=== PATIENT | female | born 1980 | race Caucasian/White ===

== ENCOUNTER 2024-10-23 09:12 | Outpatient (RCR) | payer BC, SELFPAY | END 2024-10-23 23:59 | disposition home or self-care (01) | LOC: RPT 09:12 | PROVIDERS: ATTENDING PHYSICIAN Obstetrics & Gynecology Gynecology; FAMILY PHYSICIAN Physician Assistant Medical | DX: M62.9 Disorder of muscle, unspecified (principal); N39.46 Mixed incontinence; R15.1 Fecal smearing; Z73.6 Limitation of activities due to disability; M62.81 Muscle weakness (generalized); K59.4 Anal spasm; R10.2 Pelvic and perineal pain | CPT/HCPCS: 97163; 97530 ==

== ENCOUNTER 2024-12-06 17:21 | Outpatient (RCR) | payer BC, SELFPAY | END 2024-12-06 23:59 | disposition home or self-care (01) | LOC: RPT 17:21 | PROVIDERS: ATTENDING PHYSICIAN Obstetrics & Gynecology Gynecology; FAMILY PHYSICIAN Physician Assistant Medical | DX: M62.9 Disorder of muscle, unspecified (principal); N39.46 Mixed incontinence; R15.1 Fecal smearing; Z73.6 Limitation of activities due to disability; M62.81 Muscle weakness (generalized); K59.4 Anal spasm; R10.2 Pelvic and perineal pain | CPT/HCPCS: 97112; 97530 ==

== ENCOUNTER 2025-01-30 17:59 | Outpatient (RCR) | payer BC, SELFPAY | END 2025-01-30 23:59 | disposition home or self-care (01) | LOC: RPT 17:59 | PROVIDERS: ATTENDING PHYSICIAN Obstetrics & Gynecology Gynecology; FAMILY PHYSICIAN Physician Assistant Medical | DX: M62.9 Disorder of muscle, unspecified (principal); N39.46 Mixed incontinence; R15.1 Fecal smearing; Z73.6 Limitation of activities due to disability; M62.81 Muscle weakness (generalized); K59.4 Anal spasm; R10.2 Pelvic and perineal pain | CPT/HCPCS: 97014; 97110; 97112; 97530 ==

== ENCOUNTER 2025-02-06 07:29 | Outpatient (RCR) | payer BC, SELFPAY | END 2025-02-06 23:59 | disposition home or self-care (01) | LOC: RPT 07:29 | PROVIDERS: ATTENDING PHYSICIAN Obstetrics & Gynecology Gynecology; FAMILY PHYSICIAN Physician Assistant Medical | DX: M62.9 Disorder of muscle, unspecified (principal); N39.46 Mixed incontinence; R15.1 Fecal smearing; Z73.6 Limitation of activities due to disability; M62.81 Muscle weakness (generalized); K59.4 Anal spasm; R10.2 Pelvic and perineal pain | CPT/HCPCS: 97014; 97112; 97530 ==